=== PATIENT | female | born 1985 | race Caucasian/White ===

== ENCOUNTER 2016-11-11 06:40 | Day surgery (SDC) | payer OTHER ==
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
[~2016-11-11 06:40] MED LIST: Buffered Lidocaine 0.9% SYRIN* 5 ML/SYR SYRINGE INTRADERM ONE; Buffered Lidocaine 0.9% SYRIN* 5 ML/SYR SYRINGE ONE; ceFAZolin 2 GM PREMIX (*) 50 ML IVPB ONE
[2016-11-11] MEDS ORDERED: Midazolam* 1 MG/ML 5 ML VIAL (5 MG) ONE (07:11)
[2016-11-11] MEDS ORDERED: fentaNYL* 50 MCG/ML 2 ML VIAL (100 MCG VIAL) ONE ×2 (07:11→08:21)
[2016-11-11] MEDS ORDERED: KETAMINE HCL* 50 MG/ML 10 ML VIAL ONE (07:40)
[2016-11-11] MEDS ORDERED: Cisatracurium* 2 MG/ML MDV 5 ML ONE (07:50)
[2016-11-11] MEDS ORDERED: Dexmedetomidine* 200 MCG/2 ML 2 ML VIAL ONE (08:10)
[2016-11-11] MEDS ORDERED: Lidocaine 2% PF * 5 ML VIAL ONE (08:10)
[2016-11-11] MEDS ORDERED: Ketorolac INJ* 30 MG/ML 1 ML VIAL ONE (08:10)
[2016-11-11] MEDS ORDERED: Propofol* 10 MG/ML 20 ML BTL IV PUSH ONE (08:10)
[2016-11-11] MEDS ORDERED: Famotidine IV* 10 MG/ML 2 ML (20 mg) ONE (08:10)
[2016-11-11] MEDS ORDERED: Succinylcholine* 20 MG/ML 10 ML VIAL ONE (08:10)
[2016-11-11] MEDS ORDERED: OXYTOCIN* 10 UNITS/ML 1 ML VIAL ONE (08:10)
[2016-11-11] MEDS ORDERED: Dexamethasone IV* 4 MG/ML 1 ML (4 MG) ONE (08:10)
[2016-11-11] MEDS ORDERED: Desflurane* 240 ML INH ONE (08:19)
[2016-11-11] MEDS ORDERED: Acetaminophen TAB* 325 MG PO PRN (08:46)
[2016-11-11] MEDS ORDERED: Ondansetron INJ* 2 MG/ML VIAL IV PRN (08:46)
[2016-11-11] MEDS ORDERED: oxyCODONE/Acetamin 5/325 MG* TAB PO PRN (08:46)
[2016-11-11] MEDS ORDERED: PROCHLORPERAZINE INJ 5 MG/ML 2 ML VIAL IV PRN (08:46)
[2016-11-11] MEDS ORDERED: fentaNYL* 50 MCG/ML 2 ML VIAL (100 MCG VIAL) IV PRN (08:46)
[2016-11-11] MEDS ORDERED: HYDROmorphone* 1 MG/ML 1 ML SYR IV PRN (08:46)
[2016-11-11] MEDS ORDERED: Nalbuphine* 20 MG/ML 1 ML VIAL IV PRN (08:46)
[2016-11-11] MEDS ORDERED: Bupivacaine 0.25% SDV* 30 ML ONE (08:51)
[2016-11-11] MEDS ORDERED: methylPREDNISolone ACETATE 80* 80 MG/ML 1 ML VIAL ONE (08:51)
[2016-11-11] MEDS ORDERED: PROCHLORPERAZINE INJ 5 MG/ML 2 ML VIAL ONE (09:27)
[2016-11-11 10:11] VITALS: BP 111/75
[2016-11-11] MEDS ORDERED: Bupivacaine 0.5% SDV PF* 30 ML VIAL ONE (11:06)
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
== END 2016-11-11 10:44 | disposition home or self-care (01) ==
LOC: OR 06:40
PROVIDERS: ATTEND Orthopaedic Surgery
DX: M75.41 Impingement syndrome of right shoulder (principal); M25.611 Stiffness of right shoulder, not elsewhere classified; Z87.891 Personal history of nicotine dependence; Z86.711 Personal history of pulmonary embolism; I10 Essential (primary) hypertension; Z68.36 Body mass index [BMI] 36.0-36.9, adult; D50.8 Other iron deficiency anemias
CPT/HCPCS: A9270-GY; J0330; J0690; J0780; J1040; J1100; J1885; J2250; J2590; J2704; J3010

== ENCOUNTER → 2018-02-16 10:32 | Day surgery (SDC) | payer OTHER ==
--- NOTE | 2018-02-15 21:24 | HP ---
PREOPERATIVE HISTORY AND PHYSICAL: DATE OF ADMISSION/SURGERY: 02/16/18 [facility] ATTENDING SURGEON: Dr. Eze Oliva.* (DICTATED BY GALEN WHITAKER) PROCEDURE: Right shoulder arthroscopic decompression, debridement, and possible rotator cuff repair. CHIEF COMPLAINT: Right shoulder. HISTORY OF PRESENT ILLNESS: Katherine is a 32-year-old female, who presents to the clinic status post right shoulder arthroscopy with decompression, debridement, and biceps tenotomy, no cuff repair no fall or injury. Postoperatively, she was doing well, but then she had an injury and continued to have pain. She has failed conservative measures and therefore agreed to undergo a right shoulder arthroscopic decompression, debridement, and possible rotator cuff repair with Dr. Oliva on 02/16/18. PAST MEDICAL HISTORY: Type 2 diabetes, asthma, migraine, GERD, hyperlipidemia, cervical cancer, history of pulmonary embolism, abdominal bruit, arthritis, anemia, depression, anxiety, PTSD, ADHD. PAST SURGICAL HISTORY: , bilateral carpal tunnel, cholecystectomy, tonsillectomy and adenoidectomy, tubal ligation, gastric sleeve, right shoulder surgery. The patient denies prior complications with anesthesia, but she does have a decrease in heart rate with initiation of anesthesia. MEDICATIONS: 1. Pravastatin sodium 40 mg 1 daily. 2. Symbicort 160/4.5 mcg per ACT by mouth as needed. 3. Ventolin HFA 180 mcg per ACT as needed. 4. Pantoprazole sodium 40 mg 1 by mouth daily. 5. Adderall 15 mg 1 by mouth twice a day. 6. Multivitamin 1 by mouth every day. 7. Iron 142 mg 1 by mouth daily. 8. Vitamin D 1000 units 1 by mouth daily. 9. Gabapentin 800 mg 1 by mouth 4 times a day. 10. Percocet 10/325 one every 4 to 6 hours as needed for pain. 11. Alprazolam 2 up to 3 times a day as needed for anxiety. ALLERGIES: LATEX, TAPE, ADHESIVE, IMITREX, BEE STING. FAMILY HISTORY: Positive for emphysema, heart disease, diabetes, hypertension, cancer. SOCIAL HISTORY: She lives with her . 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 She is an occasional smoker. She smokes a pack per week. She is right-hand dominant. She denies alcohol or illegal drug use. REVIEW OF SYSTEMS: A 14-point review of systems was reviewed with the patient. Positive for current complaint and positive for history of PE, otherwise negative. Denies fever, chills, chest pain, shortness of breath, history of bleeding disorder. PHYSICAL EXAMINATION GENERAL: A 32-year-old, well-developed, well-nourished female, in no acute distress. Alert and oriented x3. Appropriate mood and affect. Appropriate balance and coordination of the upper extremities. VITAL SIGNS: Height 64, weight 297, pulse 104, blood pressure 142/90, temperature 98.3, BMI 51.0. HEENT: Normocephalic, atraumatic. PERRLA. Throat clear. NECK: Supple. PULMONARY: Lungs are clear to auscultation bilaterally. No wheezing, rhonchi, or rales. CARDIO: Regular rate and rhythm. S1, S2. No murmurs, gallops, or rubs. No edema. ABDOMEN: Positive bowel sounds. Soft, nontender. NEURO: Alert and oriented x3. Cranial nerves grossly intact. MUSCULOSKELETAL: Right upper extremity: Skin is intact. No warmth or erythema. Well-healed surgical incision. Forward flexion to 140, abduction to 110, external rotation to 40. Pain with rotator cuff testing. +2 radial pulse. Sensation intact to light touch distally. DIAGNOSTIC STUDIES: MRI revealed recurrent impingement, partial-thickness tear in the infraspinatus tendon, fluid in the subacromial space and glenohumeral joint. IMPRESSION: Right shoulder impingement versus rotator cuff tear. PLAN: The patient is scheduled to undergo a right shoulder arthroscopic decompression, debridement, and possible rotator cuff repair with Dr. Oliva on 02/16/18. She will follow up 10 to 14 days postop for followup and suture removal. Lovenox will be used for DVT prophylaxis due to her history of pulmonary embolism and oxycodone will be used in addition to her chronic pain medication for postop pain management. GALEN WHITAKER [id number]/[facility] #: [id number] MTDD
[~2018-02-16 10:32] MED LIST changes: -Buffered Lidocaine 0.9% SYRIN* 5 ML/SYR SYRINGE ONE; +Bupivacaine 0.5% SDV PF* 30ML VIAL ONE; +Dexamethasone TAB* 4 MG ONE; +Dexamethasone TAB* 4 MG PO ONE; +DiMENhydriNATE IV* 50 MG/ML VIAL IV PUSH PRN; +Famotidine IV* 10 MG/ML 2 ML (20 mg) IV ONE; +Famotidine IV* 10 MG/ML 2 ML (20 mg) ONE; +KETAMINE HCL* 50 MG/ML 10 ML VIAL ONE; +Ketorolac INJ* 30 MG/ML 1 ML VIAL ONE; +Lidocaine 2% PF * 5 ML VIAL ONE; +Midazolam* 1 MG/ML 10 ML VIAL (10 MG) ONE; +Midazolam* 1 MG/ML 2 ML VIAL (2 MG) ONE; +Morphine VIAL* 4 MG/ML VIAL (1 ml vial) IV PRN; +Naloxone* 0.4 MG/ML 1 ML VIAL IV PRN; +Ondansetron ODT TAB* 4 MG ONE; +Ondansetron TAB* 4 MG PO ONE; +PROCHLORPERAZINE INJ 5 MG/ML 2 ML VIAL IV PRN; +PROCHLORPERAZINE INJ 5 MG/ML 2 ML VIAL ONE; +Propofol* 10 MG/ML 20 ML BTL ONE; +Scopolamine 1.5 mg* PATCH TRANSDERM PRN; +Scopolamine PATCH Remove* 1 NOTE MISC PATCH OFF ONE; +ceFAZolin 1 GM VIAL(*) ONE; -ceFAZolin 2 GM PREMIX (*) 50 ML IVPB ONE; +ceFAZolin 2 GM PREMIX in ORs 2 GM/50 ML BAG IVPB ONE; +fentaNYL* 50 MCG/ML 2 ML VIAL (100 MCG VIAL) IV PRN; +fentaNYL* 50 MCG/ML 2 ML VIAL (100 MCG VIAL) ONE; +oxyCODONE/Acetamin 5/325 MG* TAB ONE; +oxyCODONE/Acetamin 5/325 MG* TAB PO PRN
[2018-02-16 14:49] VITALS: BP 98/59
--- NOTE | 2018-02-17 05:43 | OP ---
CC: PCP, GALEN Zhang * DATE OF OPERATION: 02/16/18 - [facility] DATE OF : 89 SURGEON: Eze Oliva MD. DUCK FARMER: GALEN Hollingsworth. An trust operations assistant was needed for the entirety of the case to help with positioning, retraction, and was utilized throughout all portions of the case. ANESTHESIOLOGIST: Dr. Shi. ANESTHESIA: General with interscalene block. PRE-OP DIAGNOSIS: Partial-thickness tear of the rotator cuff and recurrent impingement. POST-OP DIAGNOSIS: Partial-thickness tear of the rotator cuff and recurrent impingement. OPERATIVE PROCEDURE: 1. Right shoulder arthroscopy with glenohumeral debridement. 2. Revision bursectomy. 3. Rotator cuff repair using Regeneten patch. INDICATIONS: Katherine Ritter is a 32-year-old female, who presents with persistent shoulder pain refractory on conservative management. We did a previous shoulder arthroscopy with decompression and debridement over a year ago. She has elected to proceed with surgical treatment. She has failed conservative management. Risks and benefits were discussed at length include but are not limited to bleeding, infection, damage to nerves, vessels, surrounding structures, wound nonhealing, persistent pain, need for further surgery, scarring, stiffness, incomplete relief of symptoms, risks of anesthesia. COMPLICATIONS: None. ESTIMATED BLOOD LOSS: Minimal. IMPLANTS USED: One Regeneten patch that is medium. DESCRIPTION OF PROCEDURE: The patient was greeted in the preoperative area by the attending surgeon. Correct extremity was marked and consent was confirmed. The patient underwent interscalene nerve block by the anesthesiologist after which she was brought back to the operating table. She was placed in supine position on the operating table. She then underwent general anesthesia with LMA intubation, after which she was placed in the left lateral decubitus position with all bony prominences were padded. She was secured with a pegboard. The right arm was draped unsterile with 10 pounds of traction. The right shoulder was prepped and draped in the usual sterile fashion beginning with chlorhexidine soap, scrub, and alcohol wipe and a final prep with ChloraPrep. After appropriate surgical pause indicating side, site, procedure, and administration of antibiotics, the posterolateral portal was made sharply with 11 blade. The scope was introduced into the joint and the joint was examined. The glenohumeral joint had grade 0 changes. The anterior labrum had some mild fraying. The biceps was intact without any fraying. The anterior portal was made in an outside-in fashion. The biceps were taken through range of motion and there was no synovitis, erythema, no damage to the pole. The undersurface of the rotator cuff had very minimal fraying. The inferior recess was intact. The remainder of the joint looked normal. The anterior labrum was debrided back with a shaver. The attention was then directed to the subacromial space. With the scope in the subacromial space, the lateral portal was made in an outside- in fashion. The shaver was used to debride the recurrent bursa. It was not significant although there were some non-adhesions. The bursal surface of the rotator cuff did have partial-thickness tearing that was present. The acromion was skeletonized using electrocautery device, but there was no obvious spur that is present, so it was not revised. Once the bursectomy was completed , and the cuff was examined and probed, it was determined that I would try to treat this with a Regeneten patch instead taking the whole tendon down. The medium sized patch was brought into the field and secured medially with tendon sanchez and laterally with bone sanchez. Final images were obtained. The shoulder was taken through range of motion. The patch was appropriately positioned and secured. Final images were obtained. The wounds were copiously irrigated with sterile saline. The portals were closed with 3-0 nylon. Sterile dressings were applied. A Cryo/Cuff and UltraSling were applied. She was awoken from anesthesia and transferred to the PACU in stable condition. POSTOPERATIVE PLAN: She will be nonweightbearing, will begin range of motion beginning with elbow, hand, and wrist range of motion pendulum. She will start therapy within a week. I will see the patient back in 10 to 14 days. She will be discharged on Lovenox due to her previous history of DVT and discharged on pain medication and antibiotics. I will see the patient back in 10 to 14 days. [id number]/[facility] #: [id number] [facility] CENTER[facility]idad
== END | disposition home or self-care (01) ==
LOC: OR 10:32
PROVIDERS: ATTEND Orthopaedic Surgery
DX: S46.011A Strain of muscle(s) and tendon(s) of the rotator cuff of right shoulder, initial encounter (principal); M75.41 Impingement syndrome of right shoulder; X58.XXXA Exposure to other specified factors, initial encounter; Y92.9 Unspecified place or not applicable; E11.9 Type 2 diabetes mellitus without complications; J45.909 Unspecified asthma, uncomplicated; G89.18 Other acute postprocedural pain; K21.9 Gastro-esophageal reflux disease without esophagitis; Z85.41 Personal history of malignant neoplasm of cervix uteri; Z86.711 Personal history of pulmonary embolism; Z72.0 Tobacco use; F41.8 Other specified anxiety disorders; F43.10 Post-traumatic stress disorder, unspecified; F90.9 Attention-deficit hyperactivity disorder, unspecified type
CPT/HCPCS: 81025; A9270-GY; C1713; J0690; J0780; J1885; J2250; J2704; J3010; J8540

== ENCOUNTER 2018-06-17 06:51 | Day surgery (SDC) | payer OTHER ==
--- NOTE | 2018-06-15 13:44 | HP ---
Amended report to enter cosigning physician. PREOPERATIVE HISTORY AND PHYSICAL: DATE OF SURGERY/ADMISSION: 06/17/18 DATE OF OFFICE VISIT/ENCOUNTER: 06/01/18 ATTENDING SURGEON: Lucrecia Mccormick MD* (dictated by GALEN Forbes). PROCEDURE: Right wrist carpal tunnel release. HISTORY OF PRESENT ILLNESS: This is a 32-year-old female who has had ongoing problems with symptoms of right carpal tunnel syndrome, most recently since January of 2017. She has a history of a carpal tunnel release performed in 2008, but she never got full resolution of symptoms. Over the years, the symptoms increased. She has failed conservative treatment including cortisone injection and bracing. She is interested in pursuing a repeat carpal tunnel release at this time on the right. The patient is a pain management patient and uses fentanyl patches and medical marijuana to manage her discomfort. She also has a history of pulmonary embolism in 2013. PAST MEDICAL HISTORY: 1. Chronic neck pain. 2. Lumbar spondylosis. 3. Diabetes. 4. Asthma. 5. Anxiety. 6. ADHD. 7. Generalized chronic pain. 8. Hypercholesterolemia. 9. Bipolar disorder. 10. Neuropathy of lower extremities. 11. History of PE in March of 2013. 12. History of migraine headaches. 13. History of cervical cancer. PAST SURGICAL HISTORY: 1. Right shoulder surgery x2. 2. Bilateral carpal tunnel releases. 3. x5. 4. Gastric sleeve. 5. Tonsillectomy and adenoidectomy. 6. Cholecystectomy. CURRENT MEDICATIONS: 1. Adderall 15 mg twice a day. 2. Alprazolam 2 mg up to 3 times a day p.r.n. anxiety. 3. Claritin-D 12-hour twice a day p.r.n. 4. Fentanyl 12 mcg/hr apply 1 patch to skin every 72 hours, maximum daily dose 1 every 3 days. 5. Fentanyl 25 mcg/hr apply 1 patch to skin every 72 hours, maximum daily dose 1 every 3 days. 6. Gabapentin 800 mg 4 times a day. 7. Latuda 60 mg daily. 8. Multivitamin daily. 9. Pantoprazole sodium 40 mg daily. 10. Pravastatin sodium 40 mg daily. 11. Topiramate 25 mg 1 q.h.s. for 1 week, then 2 q.h.s. for 1 week, then 3 q.h.s. for 1 week, then 4 q.h.s. 12. Ventolin HFA inhaler p.r.n. 13. Vitamin D 1000 units daily. ALLERGIES: IMITREX. Other allergies, TUNA, BEE STINGS, LATEX, and TAPE ADHESIVE. FAMILY MEDICAL HISTORY: Cancer, emphysema, heart disease, diabetes, hypertension. SOCIAL HISTORY: The patient is not currently working. 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 She is a current smoker. She smokes approximately 5 to 10 cigarettes per week. She uses medical marijuana on a regular basis. She denies alcohol use. REVIEW OF SYSTEMS: Negative for general, cephalic, cardiovascular, respiratory , GI, , other musculoskeletal, integumentary, endocrine, neurologic, and hematologic symptoms. Infectious Disease: Negative for MRSA, hepatitis C, HIV. PHYSICAL EXAMINATION GENERAL: Well-developed, well-nourished, 32-year-old female, in no acute distress. VITAL SIGNS: Height 5 feet 4 inches, weight 281 pounds, pulse rate 82, blood pressure 136/86. HEENT: Normocephalic, atraumatic. Pupils are equal, round, and reactive to light and accommodation. Extraocular movements are intact. Throat is clear. NECK: Supple. No palpable lymph nodes. PULMONARY: Lungs are clear to auscultation bilaterally. No wheezes, rales, or rhonchi. CARDIOVASCULAR: Regular rate and rhythm. S1, S2. No murmurs, rubs, or gallops. No edema. ABDOMEN: Positive bowel sounds, soft, nontender. NEUROLOGICAL: Alert and oriented x3. Cranial nerves II through XII are intact. MUSCULOSKELETAL: On exam of her right wrist and hand, she has a healed carpal tunnel release incision in the palm of the hand. There is no thenar wasting, but there is weakness with thumb abduction. She also has weakness with finger abduction. She has positive Tinel's under the median nerve at the wrist. Good range of motion of the wrist. She can make a full fist. Skin is intact. IMPRESSION: Right wrist carpal tunnel syndrome. PLAN/RECOMMENDATIONS: The patient is scheduled to undergo a right wrist carpal tunnel release with Dr. Mccormick on 06/17/18. She will return to the office 10 days postop for followup and suture removal. She has medications as prescribed by Pain Management that she will use for postoperative pain, along with Clayton 7.5/325 prescribed by me upon recommendation from pain management. GALEN FORBES [id number]/[facility] #: [id number] MTDCaridad
[~2018-06-17 06:51] MED LIST changes: -Buffered Lidocaine 0.9% SYRIN* 5 ML/SYR SYRINGE INTRADERM ONE; +Buffered Lidocaine 1% SYRIN* 1 ML/SYRINGE INTRADERM ONE; -Bupivacaine 0.5% SDV PF* 30ML VIAL ONE; -Dexamethasone TAB* 4 MG ONE; -Dexamethasone TAB* 4 MG PO ONE; -DiMENhydriNATE IV* 50 MG/ML VIAL IV PUSH PRN; -Famotidine IV* 10 MG/ML 2 ML (20 mg) IV ONE; -Famotidine IV* 10 MG/ML 2 ML (20 mg) ONE; -KETAMINE HCL* 50 MG/ML 10 ML VIAL ONE; -Ketorolac INJ* 30 MG/ML 1 ML VIAL ONE; +Lactated Ringers 1000 ML Bag* 1,000 ML IV SCH; -Lidocaine 2% PF * 5 ML VIAL ONE; -Midazolam* 1 MG/ML 10 ML VIAL (10 MG) ONE; -Midazolam* 1 MG/ML 2 ML VIAL (2 MG) ONE; -Morphine VIAL* 4 MG/ML VIAL (1 ml vial) IV PRN; -Naloxone* 0.4 MG/ML 1 ML VIAL IV PRN; -Ondansetron ODT TAB* 4 MG ONE; -Ondansetron TAB* 4 MG PO ONE; -PROCHLORPERAZINE INJ 5 MG/ML 2 ML VIAL IV PRN; -PROCHLORPERAZINE INJ 5 MG/ML 2 ML VIAL ONE; -Propofol* 10 MG/ML 20 ML BTL ONE; -Scopolamine 1.5 mg* PATCH TRANSDERM PRN; -Scopolamine PATCH Remove* 1 NOTE MISC PATCH OFF ONE; -ceFAZolin 1 GM VIAL(*) ONE; -ceFAZolin 2 GM PREMIX in ORs 2 GM/50 ML BAG IVPB ONE; -fentaNYL* 50 MCG/ML 2 ML VIAL (100 MCG VIAL) IV PRN; -fentaNYL* 50 MCG/ML 2 ML VIAL (100 MCG VIAL) ONE; -oxyCODONE/Acetamin 5/325 MG* TAB ONE; -oxyCODONE/Acetamin 5/325 MG* TAB PO PRN
[2018-06-17] MEDS ORDERED: Buffered Lidocaine 1% SYRIN* 1 ML/SYRINGE INTRADERM ONE (07:38)
[2018-06-17] MEDS ORDERED: Lidocaine 1% INJ* 10 MG/ML 30 ML SDV ONE (08:14)
[2018-06-17] MEDS ORDERED: fentaNYL* 50 MCG/ML 2 ML VIAL (100 MCG VIAL) ONE (08:15)
[2018-06-17] MEDS ORDERED: Midazolam* 1 MG/ML 5 ML VIAL (5 MG) ONE (08:15)
[2018-06-17] MEDS ORDERED: Lidocaine 2% PF * 5 ML VIAL ONE (08:25)
[2018-06-17] MEDS ORDERED: Propofol* 10 MG/ML 20 ML BTL ONE (08:25)
[2018-06-17] MEDS ORDERED: Midazolam* 1 MG/ML 2 ML VIAL (2 MG) ONE (08:38)
[2018-06-17] MEDS ORDERED: HYDROcodone/ACETAMIN 5-325 MG* 1 TAB PO PRN (09:03)
[2018-06-17] MEDS ORDERED: Naloxone* 0.4 MG/ML 1 ML VIAL IV PRN (09:03)
[2018-06-17] MEDS ORDERED: HYDROcodone/ACETAMIN 5-325 MG* 1 TAB ONE (09:04)
[2018-06-17] MEDS ORDERED: Ketorolac INJ* 30 MG/ML 1 ML VIAL ONE (09:04)
[2018-06-17 10:05] VITALS: BP 110/79
--- NOTE | 2018-06-17 10:30 | OP ---
CC: Dr. Mccormick. OPERATIVE REPORT: DATE OF OPERATION: 06/17/18 DATE OF : 89 SURGEON: Lucrecia Mccormick MD GRAIN HANDLER: GALEN Forbes ANESTHESIA: Local MAC. PRE-OP DIAGNOSIS: Right carpal tunnel syndrome. POST-OP DIAGNOSIS: Right carpal tunnel syndrome. OPERATIVE PROCEDURE: Right carpal tunnel release. ESTIMATED BLOOD LOSS: Zero. TOURNIQUET TIME: About 10 minutes. INDICATIONS FOR PROCEDURE: Katherine is a 32-year-old female who has numbness and tingling in the media n nerve distribution of the right hand. She has had a previous carpal tunnel release and her sympto ms are recurrent. She presents for a right carpal tunnel release. DESCRIPTION OF PROCEDURE: The patient was brought to the operating room, was given a sedation anesth etic and a local infiltration of 10 cc of 1% plain lidocaine in the palm of her right hand. The skin of her right hand and forearm was prepped and draped in the usual sterile fashion. The hand and for earm were exsanguinated and the tourniquet elevated to 250 mmHg. A longitudinal incision was made in the palm in line with the ring finger. We dissected through the subcutaneous tissue down to the tra nsverse carpal ligament. The ligament was divided sharply with a knife and then more proximally with the scissors. The nerve was dissected free from surrounding tissue, and there is an area of moderat e compression of the mid portion of ligament and some scarring over the nerve. The scarring was debr ided. The wound was irrigated and the skin edges were reapproximated with 4-0 nylon suture. The woun ds were dressed with Xeroform, 4x4, Webril, and an Cisco wrap. The patient tolerated the procedure wel l and was brought to the recovery room in good condition. [id number]/[facility] #: [id number]
== END 2018-06-17 10:06 | disposition home or self-care (01) ==
LOC: OR 06:51
PROVIDERS: ATTEND Orthopaedic Surgery
DX: G56.01 Carpal tunnel syndrome, right upper limb (principal); E11.9 Type 2 diabetes mellitus without complications; Z79.84 Long term (current) use of oral hypoglycemic drugs; Z72.0 Tobacco use; F43.10 Post-traumatic stress disorder, unspecified; M54.2 Cervicalgia; Z79.891 Long term (current) use of opiate analgesic
CPT/HCPCS: J1885; J2250; J2704; J3010